=== PATIENT | female | born 1955 | race Caucasian/White ===

== ENCOUNTER → 2018-12-12 | Outpatient (CLI) | payer OTHER ==
[~2018-12-12] MED LIST: REGADENOSON 0.4 MG/5 ML SYRINGE IV ONE
--- NOTE | 2018-12-12 11:54 | EST ---
EXERCISE STRESS AGE: 63 SEX: F HT: 5'4" WT: 269 PROTOCOL: Lexiscan Cardiolite Stress Test HEART RATE REST: 72 BLOOD PRESSURE REST: 183/109 MAXIMUM HEART RATE ACHIEVED: 95 MAXIMUM BLOOD PRESSURE: 214/105 CLINICAL INFORMATION: Baseline rhythm is sinus mechanism, rate of 72, normal axis and intervals. Normal echocardiogram. Baseline blood pressure 183/109 mmHg. Patient received injection of Lexiscan. Electrocardiograph monitoring revealed no evidence of diagnostic ischemic ST deviation. Cardiolite was injected per protocol. CONCLUSION: 1. Nondiagnostic electrocardiograph stress testing. 2. Nuclear images will be reported separately. MMODL / IJN: [id number] /
--- NOTE | 2018-12-12 16:15 | NM ---
EXAMINATION TYPE: NM stress lexiscan cardiolite DATE OF EXAM: 12/12/2018 COMPARISON: NONE HISTORY: Angina pectoris TECHNIQUE: After the intravenous administration of 10.4 mCi Tc 99m Sestamibi - Cardiolite resting SP ECT images acquired 45 minutes post injection. The patient received 0.4mg Lexiscan, 27.6 mCi Tc 99m Sestamibi - Stress images obtained [address] injection FINDINGS: Review of stress and rest SPECT images demonstrates mild decreased radio pharmaceutical uptake along the anterior wall the left ventricle on both stress and rest images, some decreased uptake is present along the anteroseptal left ventricle on stress as compared to rest images towards the apex of the l eft ventricle. Gated analysis shows normal wall motion with an estimated left ventricular ejection f raction of 46 %. IMPRESSION: Pharmacologically induced left ventricular myocardial ischemia. Ejection fraction 46%. Difficult to e xclude previous infarct. A Yellow level critical message alert has been initiated for Katherine Alonso DO via the [facility] on 12/12/2018 4:13 PM. This message alert has been sent to Katherine spears DO via the preferences provided by the clinician for the receipt of Radiology Critical Findings. Message ID [id number].
== END | disposition home or self-care (01) ==
LOC: RADNMMAIN 08:04
PROVIDERS: ATTEND Family Medicine
DX: I25.9 Chronic ischemic heart disease, unspecified (principal); I20.9 Angina pectoris, unspecified; Z88.5 Allergy status to narcotic agent
CPT/HCPCS: 93017; 78452; A9500; J2785

== ENCOUNTER → 2018-12-23 | Day surgery (SDC) | payer OTHER ==
[2018-12-19 10:10] VITALS: BMI 46.0
[~2018-12-23] MED LIST changes: +ALPRAZolam 0.25 MG TAB PO PRN; +ALPRAZolam 0.5 MG TAB PO PRN; +ASPIRIN 325 MG TAB PO ONE; +ATORVASTATIN 80 MG TAB PO ONE; +HEPARIN SODIUM 1,000 UN/ML (10ML VL) IV ONE; +HEPARIN SODIUM 1,000 UN/ML (10ML VL) ONE; +HYDROCHLOROTHIAZIDE PO SCH; +IOPAMIDOL-370 125ML BTL INJ ONE; +LIDOCAINE 1% INJ 10MG/ML (20 ML MDV) ONE; +LIDOCAINE 1% INJ 10MG/ML (20 ML MDV) SQ ONE; +LOSARTAN PO SCH; +METOPROLOL TARTRATE 25 MG TAB PO SCH; +MIDAZOLAM PF (FBP) 2 MG/2 ML VIAL IVP ONE; +NITROGLYCERIN SL TABS 0.4 MG TAB SUBLINGUAL PRN; +NON FORMULARY DRUG (Aspirin [Adult Low Dose Aspirin Ec] 81 MG) PO SCH; -REGADENOSON 0.4 MG/5 ML SYRINGE IV ONE; +RX INFO: IV CONTRAST WAS GIVEN 1 EACH MISC MISCELLANE PRN; +SODIUM CHLORIDE 0.9% 1,000 ML IV SCH; +SODIUM CHLORIDE 0.9% 1,000 ML in EMPTY BAG 1 BAG IV ONE; +SPIRONOLACTONE 50 MG PO SCH; +VERAPAMIL 2.5 MG/ML 2 ML AMP ONE; +VERAPAMIL SYRINGE (5 MG/10 ML) INTRAARTER ONE; +cloNIDine HCL 0.1 MG TAB PO SCH; +fentaNYL (PF) 50 MCG/ML 2 ML AMP IVP ONE; +fentaNYL (PF) 50 MCG/ML 2 ML AMP ONE
[2018-12-23 06:49] LABS: Basophils % (A) 1 %; Eosinophils # (A) 0.3 k/uL (0-0.7); Eosinophils % (A) 5 %; HCT 44.8 % (34.0-46.0); HGB 14.4 gm/dL (11.4-16.0); Lymphocytes # (A) 1.6 k/uL (1.0-4.8); Lymphocytes % (A) 27 %; MCH 28.7 pg (25.0-35.0); MCHC 32.1 g/dL (31.0-37.0); MCV 89.3 fL (80.0-100.0); Monocytes # (A) 0.4 k/uL (0-1.0); Monocytes % (A) 6 %; Neutrophils # (A) 3.5 k/uL (1.3-7.7); Neutrophils % (A) 59 %; Platelet Count 223 k/uL (150-450); RBC 5.02 m/uL (3.80-5.40); RDW 12.6 % (11.5-15.5)
[2018-12-23 06:51] VITALS: RESP 18; TEMP 97.9
[2018-12-23 07:12] LABS: African American GFR (CKD) >90 (>60 ml/min/1.73 sqM); Anion Gap 6 mmol/L; Blood Urea Nitrogen 22 mg/dL (7-17); Calcium 9.1 mg/dL (8.4-10.2); Carbon Dioxide 29 mmol/L (22-30); Chloride 105 mmol/L (98-107); Glucose 110 mg/dL (74-99); Potassium 3.9 mmol/L (3.5-5.1); Sodium 140 mmol/L (137-145)
--- NOTE | 2018-12-23 09:29 | CC ---
CARDIAC CATHETERIZATION REPORT Mrs. Zavala is a 63-year-old female with known history of hypertension who has been complaining of chest discomfort and progressive dyspnea on exertion, underwent myocardial perfusion imaging, revealed evidence of inducible ischemia in the anteroseptal wall. In view of that, recommendation made regarding cardiac catheterization. The procedures, risks, and complication were discussed with the patient who is in full understanding and agreement. PROCEDURE: Patient was brought to the laborer driver in a fasting semi-sedated state after receiving fentanyl and Benadryl and achieving moderate conscious sedated state. Using Xylocaine anesthesia and Seldinger technique, a 6-Guatemalan sheath was introduced in the right radial artery. Selective right and right and left coronary angiography performed using 5-Guatemalan 3.5 bend right and left Katharine catheter multiple views of the coronary artery including hemiaxial views were obtained. Following that 5-[place]atemalan tight pigtail catheter introduced his left ventricle and a 30 degree HA view of the left ventricle was obtained. Following that, catheter and sheaths were removed. Hemostasis was obtained with deployment of a TR band. There was no immediate complication. Patient is returned to her room in stable condition. Of note, patient received 6,000 units of intravenous heparin as well as intra-arterial verapamil. FINDINGS: 1. LEFT MAIN: This is a large-sized vessel, trifurcating into left circumflex, left anterior descending artery, left main coronary artery has no evidence of high-grade stenosis. 2. LEFT ANTERIOR DESCENDING ARTERY: This is a large-sized vessel, reaching to the apex, tapers down distal third. The left anterior descending artery as well as branches have no evidence of obstructive coronary artery disease. 3. RAMUS INTERMEDIUS: This is a large-sized vessel reaching toward the apical lateral wall that has no evidence of high-grade stenosis. 4. LEFT CIRCUMFLEX: This is a small nondominant vessel, giving rise to 2 small obtuse marginal branch that have no evidence of high-grade stenosis. 5. RIGHT CORONARY ARTERY: This is a large dominant vessel, bifurcating into PDA and posterolateral segment branches. The right coronary artery as well as branches have no evidence of obstructive disease. 6. LEFT VENTRICULOGRAM: Left ventriculogram is performed 30-degree HA view and revealed normal left ventricular size and systolic function. The ejection fraction is 60%. There was no significant mitral regurgitation. 7. FLUOROSCOPY: There is mitral annular calcification. 8. HEMODYNAMICS: There is no gradient across the aortic valve. The left ventricular end-diastolic pressure was 14 to 16 mmHg. CONCLUSION: 1. Normal coronary arteries. 2. Normal left ventricular size and systolic function. 3. Mitral annular calcification. RECOMMENDATION: 1. In view of finding anatomy, I recommend continue medical therapy with aggressive risk modifications being initiated. Those findings and recommendation were discussed with the patient and her family, who are in full understanding and agreement. 2. Duration of the procedure is 15 minutes. MMOSCARL / IJN: [id number] /
[2018-12-23 14:13] VITALS: BP 132/66; PULSE 68
== END | disposition home or self-care (01) ==
LOC: CATHCVL 06:10
PROVIDERS: ATTEND Internal Medicine Interventional Cardiology
DX: R07.9 Chest pain, unspecified (principal); R06.00 Dyspnea, unspecified; I10 Essential (primary) hypertension; Z82.49 Family history of ischemic heart disease and other diseases of the circulatory system; Z87.891 Personal history of nicotine dependence; Z79.82 Long term (current) use of aspirin; Z79.899 Other long term (current) drug therapy
CPT/HCPCS: 93458; 80048; 85025; C1769; J2001; J3010; J1644; Q9967; J2250

== ENCOUNTER → 2021-04-27 | Outpatient (CLI) | payer MEDICARE ==
[~2021-04-27] MED LIST changes: -ALPRAZolam 0.25 MG TAB PO PRN; -ALPRAZolam 0.5 MG TAB PO PRN; -ASPIRIN 325 MG TAB PO ONE; -ATORVASTATIN 80 MG TAB PO ONE; -HEPARIN SODIUM 1,000 UN/ML (10ML VL) IV ONE; -HEPARIN SODIUM 1,000 UN/ML (10ML VL) ONE; -HYDROCHLOROTHIAZIDE PO SCH; -IOPAMIDOL-370 125ML BTL INJ ONE; -LIDOCAINE 1% INJ 10MG/ML (20 ML MDV) ONE; -LIDOCAINE 1% INJ 10MG/ML (20 ML MDV) SQ ONE; -LOSARTAN PO SCH; -METOPROLOL TARTRATE 25 MG TAB PO SCH; -MIDAZOLAM PF (FBP) 2 MG/2 ML VIAL IVP ONE; -NITROGLYCERIN SL TABS 0.4 MG TAB SUBLINGUAL PRN; -NON FORMULARY DRUG (Aspirin [Adult Low Dose Aspirin Ec] 81 MG) PO SCH; +REGADENOSON 0.4 MG/5 ML SYRINGE IV PRN; -RX INFO: IV CONTRAST WAS GIVEN 1 EACH MISC MISCELLANE PRN; -SODIUM CHLORIDE 0.9% 1,000 ML IV SCH; -SODIUM CHLORIDE 0.9% 1,000 ML in EMPTY BAG 1 BAG IV ONE; -SPIRONOLACTONE 50 MG PO SCH; -VERAPAMIL 2.5 MG/ML 2 ML AMP ONE; -VERAPAMIL SYRINGE (5 MG/10 ML) INTRAARTER ONE; -cloNIDine HCL 0.1 MG TAB PO SCH; -fentaNYL (PF) 50 MCG/ML 2 ML AMP IVP ONE; -fentaNYL (PF) 50 MCG/ML 2 ML AMP ONE
--- NOTE | 2021-04-27 12:29 | NM ---
EXAMINATION TYPE: NM stress lexiscan cardiolite DATE OF EXAM: 04/27/2021 COMPARISON: Prior exam dated 12/12/2018 HISTORY: Congestive heart failure, I 25.10 TECHNIQUE: After the intravenous administration of 9.4 mCi Tc 99m Sestamibi - Cardiolite resting SPE CT images acquired 85 minutes post injection. The patient received 0.4mg Lexiscan, 25.3 mCi Tc 99m Sestamibi - Stress images obtained [address] injection FINDINGS: Exam is somewhat limited technically. Inferior wall shows greater activity within the ante rior wall towards the cardiac apex, similar findings on prior exam. Rest images show decreased uptake as compared to stress images. Review of stress and rest SPECT images demonstrates no distinct perfusion abnormality, changed compar ed to prior. Gated analysis shows normal wall motion with an estimated left ventricular ejection fra ction of 54 %. IMPRESSION: No scintigraphic evidence for reversible ischemia. Additional findings above.
--- NOTE | 2021-04-27 17:48 | EST ---
EXERCISE STRESS DATE OF STUDY: 04/27/2021 AGE: @@ SEX: @@ HT: @@ WT: @@ PROTOCOL: @@ STAGE: @@ DURATION OF EXERCISE: @@ HEART RATE REST: @@ BLOOD PRESSURE REST: @@ MAXIMUM HEART RATE ACHIEVED: @@ MAXIMUM BLOOD PRESSURE: @@ 85% MPHR: @@ 100% MPHR: @@ METS: @@ INDICATIONS: Chest pain. CLINICAL INFORMATION: STRESS DATA: Heart rate is 73, pressure is 109/66 mmHg. Baseline EKG showed sinus mechanism. The patient was given 0.4 mg of Lexiscan over 15 seconds per protocol. Max heart rate was 94 beats per minute. Maximum pressure was 121/64 mmHg. Clinically the patient did not have any symptoms. The EKG did not show any significant ST or T-wave abnormalities concerning for ischemia. CONCLUSION: 1. Nondiagnostic electrocardiogram stress testing in response to Lexiscan. 2. Please follow up on the Cardiolite portion on a separate report from Radiology Department. MMODL / IJN: [id number] /
== END | disposition home or self-care (01) ==
LOC: RADNMMAIN 08:31
PROVIDERS: ATTEND Family Medicine
DX: I50.32 Chronic diastolic (congestive) heart failure (principal); I25.10 Atherosclerotic heart disease of native coronary artery without angina pectoris; R42 Dizziness and giddiness
CPT/HCPCS: 93017; 78452; A9500; J2785

== ENCOUNTER → 2023-11-08 | Outpatient (CLI) | payer MEDICARE ==
[~2023-11-08] MED LIST changes: +REGADENOSON 0.4 MG/5 ML SYRINGE IV ONE; -REGADENOSON 0.4 MG/5 ML SYRINGE IV PRN
--- NOTE | 2023-12-04 13:38 | CA ---
Lexiscan Nuclear Stress Test Report Name: Carolyn Levi Exam Date: 11/08/2023 10:14 Exam Location: [facility] Ht (in): 64 Wt (lb): 250 BSA: 2.15 Ordering Phys: Referring Phys: ISHMEAL Technologist: Dangelo Roman Age: 68 Gender: F : 1955 Procedure CPT: Indications: ICD-10 Codes: Patient History: Chest pain, shortness of breath and palpitations Medications: Meds past 24 hrs: Pretest Chest Pain: STRESS TEST Lexiscan Protocol Exercise Duration (min:sec): 02:[address] Depressions (mm): Angina Score: Nunez Score: Resting HR (bpm): 71 Peak HR (bpm): 90 Resting BP (mmHg): 108 / 56 Peak BP (mmHg): 134 / 73 MPHR: 152 Target HR: 129 % MPHR: 59 METS: 1.0 Total Dose: Peak Dose: Atropine: Double Product: 68310 BP Response: Stress Termination: INFUSION COMPLETE Stress Symptoms: NO SYMPTOMS Stress Summary: ECG ANALYSIS Resting ECG: Sinus rhythm. Normal conduction. No arrhythmias. Normal repolarization. Stress ECG: No ECG changes from baseline with Lexiscan infusion. CONCLUSIONS No ECG evidence of ischemia with Lexiscan infusion. Nuclear test results to follow. Dr. Jair Byrnes MD (Electronically Signed) Final Date: 08 November 2023 11:58
--- NOTE | 2023-12-05 13:40 | NM ---
Patient: Carolyn Levi Ordering Physician: Unknown, Unknown ID: [id number] Phone, Pager: Phone: N/A Pager: N/A : 1955 Age/Gender: 68Y, F Primary Location: N/A Procedure: NM STRESS MAIKEL CLIT E HERNÁN [id number] Study Date: 11/08/2023 9:56:07 AM EXAMINATION TYPE: NM stress cardiolite complete DATE OF EXAM: 11/08/2023 COMPARISON: NONE CLINICAL INDICATION: Precordial chest pain TECHNIQUE: After the intravenous administration of 8.5 mCi Tc 99m Sestamibi - Rest images obtained p ost injection. Following injection 0.4 mg Lexiscan stress images were obtained following the injectio n of 25.8 mCi of technetium 99m sestamibi. FINDINGS: Targeted heart rate was achieved during performance of the study. Review of stress and rest SPECT eunice ges demonstrates fixed defect anterior wall. Stress-induced ischemia seen. Gated analysis shows breanna l wall motion with an estimated left ventricular ejection fraction of 64 %. IMPRESSION: No scintigraphic evidence for reversible ischemia
== END | disposition home or self-care (01) ==
LOC: RADNMMAIN 08:24
PROVIDERS: ATTEND Family Medicine
DX: I11.0 Hypertensive heart disease with heart failure (principal); I50.32 Chronic diastolic (congestive) heart failure
CPT/HCPCS: 78452; 93017